=== PATIENT | male | born 1960 | race Caucasian/White ===

== ENCOUNTER 2018-09-22 11:31 | Emergency (ER) | payer MEDICAID ==
[~2018-09-22] VITALS: Ht 177.8 cm; Wt 0.9 kg
[2018-09-22] MEDS ORDERED: vancomycin/NS 1 GM ADD-VANTAGE 250 ML IV ONE (13:30)
[2018-09-22] MEDS ORDERED: piperacillin/tazo 3.375gm/50ml 50 ML IV ONE (13:30)
[2018-09-22] MEDS ORDERED: normal saline 1000ML IV soln IVB ONE (13:30)
[2018-09-22] MEDS ORDERED: LIDOcaine 1% w/epiNEPHrine 1:200,000 30ml vial IM ONE (13:45)
[2018-09-22 14:12] LABS: BASOPHILS % (AUTO) 0.2 % (0-1); EOSINOPHILS # (AUTO) 0.1 X10'3 (0-0.9); EOSINOPHILS % (AUTO) 0.8 % (0-6); HEMOGLOBIN 14.6 g/dl (14.0-17.9); LYMPHOCYTES # (AUTO) 1.2 X10'3 (1.1-4.8); LYMPHOCYTES % (AUTO) 8.4 % (21-51); MEAN CORPUSCULAR HEMOGLOBIN 31.1 PG (27.0-31.0); MEAN CORPUSCULAR HGB CONC 33.9 g/dL (33.0-36.5); MEAN CORPUSCULAR VOLUME 91.8 FL (78-98); MEAN PLATELET VOLUME 8.2 FL (7.4-10.4); MONOCYTES # (AUTO) 0.8 X10'3 (0-0.9); MONOCYTES % (AUTO) 5.7 % (2-12); NEUTROPHILS # (AUTO) 11.9 X10'3 (1.8-7.7); NEUTROPHILS % (AUTO) 84.9 % (42-75); PLATELET COUNT 193 X10'3 (140-440); RED BLOOD COUNT 4.68 X10'6 (4.70-6.10); RED CELL DISTRIBUTION WIDTH 14.1 % (11.5-14.5)
[2018-09-22 14:21] LABS: ALANINE AMINOTRANSFERASE 39 U/L (12-78); ALBUMIN 3.2 G/DL (3.4-5.0); ALBUMIN/GLOBULIN RATIO 0.8 (1.1-1.5); ALKALINE PHOSPHATASE 63 IU/L (46-116); ANION GAP 5 (8-16); ASPARTATE AMINO TRANSFERASE 38 U/L (10-37); BILIRUBIN,TOTAL 0.2 MG/DL (0.1-1.0); BLOOD UREA NITROGEN 15 MG/DL (7-18); BUN/CREATININE RATIO 16.3 (5.4-32.0); CHLORIDE 100 MMOL/L (99-107); CREATININE 0.92 MG/DL (0.60-1.10); GLUCOSE 137 MG/DL (70-104); POTASSIUM 4.2 MMOL/L (3.5-5.1); SODIUM 133 MMOL/L (135-145); TOTAL CARBON DIOXIDE 28.2 MMOL/L (24-32); eGFR 84 ML/MIN
[2018-09-22] MEDS ORDERED: sulfamethoxazole/trimethoprim DS (800/160mg) tablet PO ONE (14:45)
[2018-09-22] MEDS ORDERED: cephalexin 250mg capsule PO ONE (14:45)
--- NOTE | 2018-09-22 14:47 | NUR ---
6 IV ATTEMPTS TOTAL, ASKED MD TO LOOK FOR US IV SITE. WHEN MD IN ROOM, PT DECIDED HE WANTED TO LEAVE WITHOUT HAVING GOTTEN HIS IV ANTIBIOTICS. IV THAT HAD BEEN STARTED WOULD NOT RUN
[2018-09-22] MEDS ORDERED: CEPH500C5 PO (14:53)
[2018-09-22] MEDS ORDERED: BACDS PO (14:53)
[2018-09-22 15:02] VITALS: BP 132/77
== END 2018-09-22 15:09 | disposition home or self-care (01) ==
LOC: ER 11:32
DX: S60.312A Abrasion of left thumb, initial encounter (principal); L03.012 Cellulitis of left finger; F12.90 Cannabis use, unspecified, uncomplicated; F15.90 Other stimulant use, unspecified, uncomplicated; F11.90 Opioid use, unspecified, uncomplicated; Z86.73 Personal history of transient ischemic attack (TIA), and cerebral infarction without residual deficits; Z60.2 Problems related to living alone; Z59.0 Homelessness; Z56.0 Unemployment, unspecified; Z79.899 Other long term (current) drug therapy; W22.8XXA Striking against or struck by other objects, initial encounter; Y93.89 Activity, other specified; Y92.89 Other specified places as the place of occurrence of the external cause; Y99.8 Other external cause status
CPT/HCPCS: 10060; 36415; 73130; 80053; 84145; 85025; 99284; J2543; J3370; J3490

== ENCOUNTER 2018-09-22 17:16 | Inpatient (IN) | payer MEDICAID ==
[~2018-09-22] VITALS: Ht 177.8 cm; Wt 86.3 kg
[~2018-09-22 17:16] MED LIST: BACDS PO; CEPH500C5 PO
[2018-09-22] MEDS ORDERED: piperacillin/tazo 3.375gm/50ml 50 ML IV ONE (18:25)
[2018-09-22] MEDS ORDERED: vancomycin/NS 1 GM ADD-VANTAGE 250 ML IV ONE (18:25)
[2018-09-22] MEDS ORDERED: potassium Cl 20 mEq SR tablet PO PRN ×2 (20:45)
[2018-09-22] MEDS ORDERED: acetaminophen 325mg tablet PO PRN ×2 (20:45)
[2018-09-22] MEDS ORDERED: mag hydrox/Alum hydrox/simeth 30ml oral suspension PO PRN (20:45)
[2018-09-22] MEDS ORDERED: HYDROcodone/acetaminophen 5mg/325mg tablet PO PRN (20:45)
[2018-09-22] MEDS ORDERED: morphine 4 MG/ML inj SYRINge IV PRN ×2 (20:45)
[2018-09-22] MEDS ORDERED: HYDROcodone/acetaminophen 10/325mg tab PO PRN (20:45)
[2018-09-22] MEDS ORDERED: magnesium 2GM in 50ml NS 50 ML IV PRN (20:45)
[2018-09-22] MEDS ORDERED: magnesium 4gm in 100ml NS 100 ML IV PRN (20:45)
[2018-09-22] MEDS ORDERED: ondansetron/PF 4mg/2ml inj IV PRN (20:45)
[2018-09-22] MEDS ORDERED: magnesium Cl slow-release 64mg tablet PO PRN (20:45)
[2018-09-22] MEDS ORDERED: magnesium hydroxide 30ml (MOM) UD suspension PO PRN (20:45)
[2018-09-22] MEDS ORDERED: potassium Cl 40MEQ/NS 500ml 500 ML IV PRN ×2 (20:45)
[2018-09-22] MEDS: normal saline 1000ml 1,000 ML IV SCH ×2 (21:21→23:02)
[2018-09-22 23:00] VITALS: BP 121/76
[2018-09-23] MEDS ORDERED: piperacillin/tazo 3.375gm/50ml 50 ML IV SCH
--- NOTE | 2018-09-23 00:16 | NUR ---
patient's knife locked up with security.
[2018-09-23 06:00] VITALS: BP 152/92
[2018-09-23] MEDS ORDERED: vancomycin inj 1,250 MG in NS 250ml IV soln IV SCH (06:00)
--- NOTE | 2018-09-23 06:35 | NUR ---
Patient in room ORTHO 4018. I have received report from Lashell RANDALL and had the opportunity to ask questions and assume patient care.
--- NOTE | 2018-09-23 06:41 | NUR ---
reported to days. noted pt resting. abx infusing. requested MD order culture of wound
[2018-09-23] MEDS ORDERED: enoxaparin 40mg/0.4ml syringe SQ SCH (08:00)
[2018-09-23] MEDS ORDERED: K and/or MAG REPLACEMENT MC SCH (08:00)
[2018-09-23] MEDS ORDERED: lactobacillus rhamnosus 10,000 MMU CELLS/CAPSULE PO SCH (08:00)
--- NOTE | 2018-09-23 09:08 | NUR ---
PAGER ID: [phone] MESSAGE: [phone] gabriella Jerry is leaving ama- has rx from previous for abx
--- NOTE | 2018-09-23 10:34 | NUR ---
Patient left AMA at 0915 this am. I educated the patient on why he should not leave, and tried to talk him into staying for his health and wellbeing. All risks and benefits discussed with the patient. AMA sign formed, notified. IV taken out. Patient did not eait for MD to come up, but MD was aware of patient leaving AMA.
[2018-09-24] MEDS ORDERED: VANCOMYCIN LEVEL IV ONE (05:30)
== END 2018-09-23 09:00 | disposition left against medical advice (07) | DRG 383 ==
LOC: ER 17:16 → ED HOLD 20:41 → ORTHO 4S 22:40
PROVIDERS: ADMIT Hospitalist; ATTEND Family Medicine
DX: L03.114 Cellulitis of left upper limb (principal); E87.1 Hypo-osmolality and hyponatremia; F12.90 Cannabis use, unspecified, uncomplicated; M65.842 Other synovitis and tenosynovitis, left hand; F32.9 Major depressive disorder, single episode, unspecified; F11.10 Opioid abuse, uncomplicated; Z53.21 Procedure and treatment not carried out due to patient leaving prior to being seen by health care provider; Z60.2 Problems related to living alone; Z59.0 Homelessness; Z86.73 Personal history of transient ischemic attack (TIA), and cerebral infarction without residual deficits; Z72.89 Other problems related to lifestyle; Z79.899 Other long term (current) drug therapy
CPT/HCPCS: 87070; 96365; 96366; 96368; 99285; G0378; J1650; J2543; J3370; J7030

== ENCOUNTER 2019-03-07 14:49 | Inpatient (IN) | payer MEDICAID ==
[~2019-03-07] VITALS: Ht 177.8 cm; Wt 71.8 kg
[~2019-03-07 14:49] MED LIST changes: -BACDS PO
[2019-03-07] MEDS ORDERED: CefTRIAXone 2gm/D5W 50ml 50 ML IV ONE (15:50)
[2019-03-07] MEDS ORDERED: HYDROcodone/acetaminophen 10/325mg tab PO ONE (15:50)
[2019-03-07] MEDS ORDERED: TETanus/Pertussis (Acell)/Diphther VAC/PF (Tdap-Adult) 0.5ml syringe IM ONE (15:50)
[2019-03-07] MEDS ORDERED: LIDOcaine 1% w/EPI 1:200,000 injection 10mL vial IM ONE (15:50)
[2019-03-07] MEDS ORDERED: normal saline 1000ML IV soln IV ONE (15:50)
[2019-03-07] MEDS ORDERED: LIDOcaine 1% W/epiNEPHrine 1:100,000 20ml vial IJ ONE (15:55)
--- NOTE | 2019-03-07 16:30 | NUR ---
WENT TO START IV WITH ULTRASOUND, PT IS A DIFFICULT STICK. BEING RESISTANT TO CARE, TOLD SARITA RUSSO, HES GOING TO GO TALK TO HIM. HE WANTS TO SMOKE
[2019-03-07] MEDS ORDERED: nicotine 21mg patch - 24 hr TD ONE (16:35)
[2019-03-07 17:51] LABS: BASOPHILS % (AUTO) 0.1 % (0-1); EOSINOPHILS # (AUTO) 0.1 X10'3 (0-0.9); EOSINOPHILS % (AUTO) 0.6 % (0-6); HEMATOCRIT 36.1 % (42.0-52.0); HEMOGLOBIN 12.2 g/dl (14.0-17.9); LYMPHOCYTES # (AUTO) 1.4 X10'3 (1.1-4.8); LYMPHOCYTES % (AUTO) 12.7 % (21-51); MEAN CORPUSCULAR HGB CONC 33.8 g/dL (33.0-36.5); MEAN CORPUSCULAR VOLUME 91.7 FL (78-98); MEAN PLATELET VOLUME 7.3 FL (7.4-10.4); MONOCYTES # (AUTO) 0.8 X10'3 (0-0.9); MONOCYTES % (AUTO) 7.3 % (2-12); NEUTROPHILS # (AUTO) 8.8 X10'3 (1.8-7.7); NEUTROPHILS % (AUTO) 79.3 % (42-75); PLATELET COUNT 265 X10'3 (140-440); RED BLOOD COUNT 3.93 X10'6 (4.70-6.10); WHITE BLOOD COUNT 11.1 X10'3 (4.5-11.0)
[2019-03-07 18:09] LABS: ALANINE AMINOTRANSFERASE 37 U/L (12-78); ALBUMIN 2.7 G/DL (3.4-5.0); ALBUMIN/GLOBULIN RATIO 0.7 (1.1-1.5); ALKALINE PHOSPHATASE 72 IU/L (46-116); ANION GAP 6 (8-16); ASPARTATE AMINO TRANSFERASE 37 U/L (10-37); BILIRUBIN,TOTAL 0.3 MG/DL (0.1-1.0); BLOOD UREA NITROGEN 16 MG/DL (7-18); BUN/CREATININE RATIO 21.6 (5.4-32.0); CALCIUM 8.1 MG/DL (8.5-10.1); CHLORIDE 103 MMOL/L (99-107); CREATININE 0.74 MG/DL (0.60-1.10); GLUCOSE 141 MG/DL (70-104); POTASSIUM 3.6 MMOL/L (3.5-5.1); SODIUM 137 MMOL/L (135-145); TOTAL CARBON DIOXIDE 28.1 MMOL/L (24-32); TOTAL PROTEIN 6.6 G/DL (6.4-8.2); eGFR > 90 ML/MIN
[2019-03-07] MEDS ORDERED: iohexol 300mg/ml 100ml inj. ONE (18:44)
[2019-03-07] MEDS ORDERED: NO HOME MEDS (19:51)
--- NOTE | 2019-03-07 20:08 | NUR ---
PT PLACED INTO A GOWN, CLOTHING BAGGED. HE IS EATING SOME CRACKERS. HE IS DROWSY. LAB ATTEMPTED BLOOD CULTURE, ONLY GOT A LITTLE BIT OF BLOOD. PT AWARE HE IS BEING ADMITTED. THE ABSCESS TO HIS RIGHT ARM DRAINED BROWN PURULENT SO I PUT A FRESH GUAZE AND COBAN TO THAT SITE. I PUT COBAN TO HIS IV ON HIS RIGHT FOOT AND TOLD HIM TO BE VERY CAUTIOUS ABOUT THAT IV SITE.
[2019-03-07] MEDS ORDERED: vancomycin/NS 1 GM ADD-VANTAGE 250 ML IV ONE (20:40)
[2019-03-07] MEDS ORDERED: HYDROmorphone inj. 0.5 MG/0.5 ML DISP.SYRIN IV PRN (21:10)
[2019-03-07] MEDS ORDERED: normal saline 1000ml 1,000 ML IV ONE (21:10)
[2019-03-07] MEDS ORDERED: potassium CL 10mEq/100ml bag 100 ML IV PRN ×2 (21:10)
[2019-03-07] MEDS ORDERED: mag hydrox/Alum hydrox/simeth 30ml oral suspension PO PRN (21:10)
[2019-03-07] MEDS ORDERED: acetaminophen 325mg tablet PO PRN ×2 (21:10)
[2019-03-07] MEDS ORDERED: HYDROcodone/acetaminophen 5mg/325mg tablet PO PRN (21:10)
[2019-03-07] MEDS ORDERED: magnesium Cl slow-release 64mg tablet PO PRN (21:10)
[2019-03-07] MEDS ORDERED: magnesium hydroxide 30ml (MOM) UD suspension PO PRN (21:10)
[2019-03-07] MEDS ORDERED: magnesium 2GM in 50ml NS 50 ML IV PRN (21:10)
[2019-03-07] MEDS ORDERED: ondansetron/PF 4mg/2ml inj IV PRN (21:10)
[2019-03-07] MEDS ORDERED: magnesium 4gm in 100ml NS 100 ML IV PRN (21:10)
[2019-03-07] MEDS ORDERED: HYDROmorphone 1 mg/ml syringe IV PRN (21:10)
[2019-03-07] MEDS ORDERED: potassium Cl 20 mEq SR tablet PO PRN ×2 (21:10)
--- NOTE | 2019-03-07 22:06 | NUR ---
TECH AND SECURITY WILL BE GOING THROUGH THE PATIENTS' BELONGINGS.
--- NOTE | 2019-03-07 22:31 | NUR ---
HIS BELONGINGS WERE BAGGED. THERE ARE 4 BAGS THAT WERE PUT IN THE LOCKERS OUTSIDE.
[2019-03-07 23:15] VITALS: BP 131/89
[2019-03-08 06:00] VITALS: BP 138/86
--- NOTE | 2019-03-08 06:03 | NUR ---
Report given to yue Martinez .
--- NOTE | 2019-03-08 06:33 | NUR ---
Patient in room ORTHO 4017. I have received report from Kristy RANDALL and Maryse RANDALL and had the opportunity to ask questions and assume patient care.
[2019-03-08] MEDS: HYDROcodone/acetaminophen 10/325mg tab PO PRN ×2 (07:27→11:47)
[2019-03-08] MEDS ORDERED: CefTRIAXone 2gm/D5W 50ml 50 ML IV SCH (08:00)
[2019-03-08] MEDS ORDERED: K and/or MAG REPLACEMENT MC SCH (08:00)
[2019-03-08] MEDS ORDERED: enoxaparin 40mg/0.4ml syringe SQ SCH (08:00)
[2019-03-08] MEDS ORDERED: lactobacillus rhamnosus 10,000 MMU CELLS/CAPSULE PO SCH (08:00)
[2019-03-08 10:00] VITALS: BP 132/88
[2019-03-08] MEDS ORDERED: pneumococcal 23-VAL P-sac vacc 25 mcg/0.5ml vial IMVAC ONE (10:00)
[2019-03-08 10:39] LABS: BASOPHILS # (AUTO) 0.1 X10'3 (0-0.2); EOSINOPHILS % (AUTO) 0.4 % (0-6); HEMATOCRIT 38.6 % (42.0-52.0); HEMOGLOBIN 13.1 g/dl (14.0-17.9); LYMPHOCYTES # (AUTO) 1.6 X10'3 (1.1-4.8); LYMPHOCYTES % (AUTO) 17.6 % (21-51); MEAN CORPUSCULAR HGB CONC 33.9 g/dL (33.0-36.5); MEAN CORPUSCULAR VOLUME 91.6 FL (78-98); MEAN PLATELET VOLUME 7.7 FL (7.4-10.4); MONOCYTES # (AUTO) 0.5 X10'3 (0-0.9); MONOCYTES % (AUTO) 5.9 % (2-12); NEUTROPHILS # (AUTO) 6.7 X10'3 (1.8-7.7); NEUTROPHILS % (AUTO) 75.1 % (42-75); PLATELET COUNT 299 X10'3 (140-440); RED BLOOD COUNT 4.22 X10'6 (4.70-6.10); RED CELL DISTRIBUTION WIDTH 15.1 % (11.5-14.5); WHITE BLOOD COUNT 8.9 X10'3 (4.5-11.0)
[2019-03-08 10:41] LABS: ALBUMIN 2.5 G/DL (3.4-5.0); ANION GAP 4 (8-16); BLOOD UREA NITROGEN 11 MG/DL (7-18); BUN/CREATININE RATIO 17.7 (5.4-32.0); CALCIUM 7.9 MG/DL (8.5-10.1); CHLORIDE 105 MMOL/L (99-107); CREATININE 0.62 MG/DL (0.60-1.10); GLUCOSE 105 MG/DL (70-104); MAGNESIUM 1.7 MG/DL (1.5-2.4); POTASSIUM 3.8 MMOL/L (3.5-5.1); SODIUM 138 MMOL/L (135-145); TOTAL CARBON DIOXIDE 28.7 MMOL/L (24-32); eGFR > 90 ML/MIN
--- NOTE | 2019-03-08 11:57 | NUR ---
Juan [phone] Re: Claritza. Wants to leave AMA. Pt needs ABX. can we DC patient with ABX?
[2019-03-08] MEDS ORDERED: SULF1TAB49 PO (12:24)
[2019-03-08] MEDS ORDERED: tetanus & diphtheria toxoid (Td) vaccine 0.5ml IMVAC ONE (12:25)
[2019-03-08] MEDS ORDERED: vancomycin/NS 1 GM ADD-VANTAGE 250 ML IV SCH (13:00)
--- NOTE | 2019-03-08 13:03 | NUR ---
Patient safe DC from hospital. all belongings on patient.
--- NOTE | 2019-03-08 14:14 | NUR ---
WOUND INFECTION EDUCATION PROVIDED BY WOUND CARE 1. Patient instructed to call their primary doctor, or go the ED immediately if any of the following symptoms occur: * Increased pain in wound * Increase in drainage from the wound * Redness in the skin surrounding the wound * Warmth in the skin surrounding the wound * Bleeding from the wound * Temperature of 101 or greater 2. If any of these occur while in the hospital tell a nurse immediately. Addendum: 03/08/19 at 1414 by Debbie Paz RN Amended: Links added.
[2019-03-09] MEDS ORDERED: VANCOMYCIN LEVEL IV ONE (12:30)
== END 2019-03-08 13:25 | disposition home or self-care (01) | DRG 351 ==
LOC: ER 14:49 → ORTHO 4S 22:47 → CMPBEDREQ 03-08 05:30
PROVIDERS: ADMIT Hospitalist; ATTEND Family Medicine
PROC: 0H9DXZZ Drainage of Right Lower Arm Skin, External Approach (ICD-10-PCS; principal; 2019-03-07)
PROC: 3E0234Z Introduction of Serum, Toxoid and Vaccine into Muscle, Percutaneous Approach (ICD-10-PCS; 2019-03-07)
PROC: BP2T1ZZ Computerized Tomography (CT Scan) of Right Upper Extremity using Low Osmolar Contrast (ICD-10-PCS; 2019-03-07)
DX: M71.021 Abscess of bursa, right elbow (principal); F11.10 Opioid abuse, uncomplicated; L03.113 Cellulitis of right upper limb; F17.210 Nicotine dependence, cigarettes, uncomplicated; Z60.2 Problems related to living alone; F12.10 Cannabis abuse, uncomplicated; F32.9 Major depressive disorder, single episode, unspecified; Z59.0 Homelessness; Z80.0 Family history of malignant neoplasm of digestive organs; Z80.7 Family history of other malignant neoplasms of lymphoid, hematopoietic and related tissues; Z86.73 Personal history of transient ischemic attack (TIA), and cerebral infarction without residual deficits; Z23 Encounter for immunization; Z71.6 Tobacco abuse counseling; Z71.51 Drug abuse counseling and surveillance of drug abuser
CPT/HCPCS: 10060; 36415; 73201; 80048; 80053; 83605; 83735; 84145; 85025; 87040; 87081; 90471; 96365; 96375; 99285; G0378; J0696; J1170; J1650; J3370; Q9967

== ENCOUNTER 2019-07-20 11:47 | Inpatient (IN) | payer MEDICAID ==
[~2019-07-20] VITALS: Ht 177.8 cm; Wt 74.9 kg
[2019-07-20] MEDS ORDERED: methylPREDNISolone sod succ 125mg/2ml vial IV ONE (12:15)
[2019-07-20] MEDS ORDERED: ipratropium/albuterol 3ml nebule NEB ONE (12:15)
[2019-07-20] MEDS ORDERED: azithromycin/NS 500mg/250ml 250 ML IV ONE (12:15)
[2019-07-20] MEDS ORDERED: normal saline 1000ML IV soln IV ONE (12:15)
[2019-07-20] MEDS ORDERED: CefTRIAXone 2gm/D5W 50ml 50 ML IV ONE (12:15)
[2019-07-20 12:33] LABS: BASOPHILS % (AUTO) 0.1 % (0-1); EOSINOPHILS % (AUTO) 0.1 % (0-6); HEMATOCRIT 38.6 % (42.0-52.0); HEMOGLOBIN 13.1 g/dl (14.0-17.9); LYMPHOCYTES % (AUTO) 4.8 % (21-51); MEAN CORPUSCULAR HEMOGLOBIN 30.2 PG (27.0-31.0); MEAN CORPUSCULAR HGB CONC 33.9 g/dL (33.0-36.5); MEAN CORPUSCULAR VOLUME 89.2 FL (78-98); MEAN PLATELET VOLUME 7.3 FL (7.4-10.4); MONOCYTES # (AUTO) 0.7 X10'3 (0-0.9); MONOCYTES % (AUTO) 3.1 % (2-12); NEUTROPHILS # (AUTO) 19.3 X10'3 (1.8-7.7); NEUTROPHILS % (AUTO) 91.9 % (42-75); PLATELET COUNT 433 X10'3 (140-440); RED BLOOD COUNT 4.33 X10'6 (4.70-6.10); RED CELL DISTRIBUTION WIDTH 15.2 % (11.5-14.5); WHITE BLOOD COUNT 21.1 X10'3 (4.5-11.0)
[2019-07-20 12:58] LABS: ALANINE AMINOTRANSFERASE 67 U/L (12-78); ALBUMIN 2.1 G/DL (3.4-5.0); ALBUMIN/GLOBULIN RATIO 0.5 (1.1-1.5); ALKALINE PHOSPHATASE 128 IU/L (46-116); ANION GAP 10 (8-16); ASPARTATE AMINO TRANSFERASE 63 U/L (10-37); BILIRUBIN,TOTAL 0.8 MG/DL (0.1-1.0); BLOOD UREA NITROGEN 17 MG/DL (7-18); BUN/CREATININE RATIO 24.6 (5.4-32.0); CALCIUM 7.7 MG/DL (8.5-10.1); CHLORIDE 104 MMOL/L (99-107); CREATININE 0.69 MG/DL (0.60-1.10); GLUCOSE 96 MG/DL (70-104); POTASSIUM 3.2 MMOL/L (3.5-5.1); SODIUM 142 MMOL/L (135-145); TOTAL CARBON DIOXIDE 28.4 MMOL/L (24-32); TOTAL PROTEIN 6.7 G/DL (6.4-8.2); eGFR > 90 ML/MIN
[2019-07-20] MEDS ORDERED: NO HOME MEDS (13:13)
[2019-07-20] MEDS ORDERED: potassium CL 10mEq/100ml bag 100 ML IV PRN ×2 (13:25)
[2019-07-20] MEDS ORDERED: mag hydrox/Alum hydrox/simeth 30ml oral suspension PO PRN (13:25)
[2019-07-20] MEDS ORDERED: magnesium Cl slow-release 64mg tablet PO PRN (13:25)
[2019-07-20] MEDS ORDERED: acetaminophen 325mg tablet PO PRN ×2 (13:25)
[2019-07-20] MEDS ORDERED: bisacodyl 10mg suppository rectal RC PRN (13:25)
[2019-07-20] MEDS ORDERED: magnesium 2GM in 50ml NS 50 ML IV PRN (13:25)
[2019-07-20] MEDS ORDERED: magnesium 4gm in 100ml NS 100 ML IV PRN (13:25)
[2019-07-20] MEDS ORDERED: ondansetron/PF 4mg/2ml inj IV PRN (13:25)
[2019-07-20] MEDS ORDERED: magnesium hydroxide 30ml (MOM) UD suspension PO PRN (13:25)
[2019-07-20] MEDS ORDERED: potassium Cl 20 mEq SR tablet PO PRN (13:25)
[2019-07-20] MEDS ORDERED: diphenhydrAMINE 25mg capsule PO PRN (13:25)
[2019-07-20] MEDS ORDERED: acetaminophen 650mg rectal suppository RC PRN (13:25)
[2019-07-20] MEDS: ipratropium/albuterol 3ml nebule NEB SCH ×3 (15:00→23:00)
--- NOTE | 2019-07-20 15:45 | NUR ---
Patient in room ORTHO 4007. I have received report from ELIECER, ELICEO RANDALL and had the opportunity to ask questions and assume patient care.
[2019-07-20 15:50] VITALS: BP 119/74
--- NOTE | 2019-07-20 16:09 | NUR ---
Patient refused SVN tx @ this time. No Shortness of breath noted. PT IN THE SHOWER Addendum: 07/20/19 at 1610 by Halima Jurado RT Amended: Links added.
[2019-07-20] MEDS: methylPREDNISolone sod succ 125mg/2ml vial IV SCH ×2 (16:26→19:48)
[2019-07-20] MEDS: normal saline 1000ml 1,000 ML IV SCH ×2 (16:34→23:22)
[2019-07-20] MEDS: potassium Cl 20 mEq SR tablet PO PRN ×2 (16:42→21:14)
[2019-07-20] MEDS: levoFLOXACIN-Levaquin 750MG/D5 150 ML IV SCH (16:45)
[2019-07-20 16:56] LABS: HEMOGLOBIN A1C 5.5 % (4.5-6.2)
[2019-07-20 18:00] VITALS: BP 117/73
--- NOTE | 2019-07-20 18:37 | NUR ---
Problems reprioritized. Patient report given, questions answered & plan of care reviewed with yue randolph.
[2019-07-20] MEDS: heparin, porcine 5000 units/ml vial SQ SCH (19:48)
[2019-07-20] MEDS: K and/or MAG REPLACEMENT MC SCH (20:00)
[2019-07-20 22:00] VITALS: BP 131/71
[2019-07-20 22:02] LABS: CLARITY,URINE CLEAR (Clear); COLOR,URINE YELLOW (Yellow); GLUCOSE, URINE NEGATIVE (Neg); KETONES,URINE NEGATIVE (Neg); LEUKOCYTE ESTERASE ,URINE NEGATIVE (Neg); NITRITES, URINE NEGATIVE (Neg); OCCULT BLOOD,URINE NEGATIVE (Neg); PROTEIN,URINE TRACE mg/dl (Neg); UROBILINOGEN,URINE >=8.0 E.U/dL (0.2-1.0)
[2019-07-20 22:12] LABS: URINE AMPHETAMINE SCREEN POSITIVE (Neg); URINE BARBITUATE SCREEN NEGATIVE (Neg); URINE BENZODIAZEPINES SCREEN NEGATIVE (Neg); URINE CANNABINOID SCREEN NEGATIVE (Neg); URINE COCAINE SCREEN NEGATIVE (Neg); URINE METHADONE SCREEN NEGATIVE (Neg); URINE OPIATE SCREEN POSITIVE (Neg); URINE PHENCYCLIDINE SCREEN NEGATIVE (Neg)
[2019-07-20 22:13] LABS: UA COLLECTION TYPE CLN CATCH MIDSTREAM
[2019-07-20 22:15] LABS: BACTERIA,URINE NONE SEEN /HPF (Neg); MUCUS STRANDS MODERATE /LPF (Neg); RBC,URINE 0-2 /HPF (0-2); SQUAMOUS EPITHELIAL CELL,UR FEW /LPF (FEW); WBC,URINE 0-4 /HPF (0-4)
[2019-07-21 01:48] LABS: ALANINE AMINOTRANSFERASE 57 U/L (12-78); ALBUMIN 1.6 G/DL (3.4-5.0); ALBUMIN/GLOBULIN RATIO 0.4 (1.1-1.5); ALKALINE PHOSPHATASE 102 IU/L (46-116); ANION GAP 7 (8-16); ASPARTATE AMINO TRANSFERASE 54 U/L (10-37); BILIRUBIN,TOTAL 0.3 MG/DL (0.1-1.0); BLOOD UREA NITROGEN 16 MG/DL (7-18); BUN/CREATININE RATIO 22.9 (5.4-32.0); CALCIUM 7.5 MG/DL (8.5-10.1); CHLORIDE 108 MMOL/L (99-107); CHOL/HDL RATIO 4.1 (0.00-4.99); CHOLESTEROL 70 MG/DL (0-200); GLUCOSE 166 MG/DL (70-104); HDL CHOLESTEROL 17 MG/DL (35-60); LDL CHOLESTEROL 49 MG/DL (50-100); MAGNESIUM 1.8 MG/DL (1.5-2.4); PHOSPHORUS 2.8 MG/DL (2.3-4.5); POTASSIUM 3.7 MMOL/L (3.5-5.1); SODIUM 143 MMOL/L (135-145); TOTAL PROTEIN 5.8 G/DL (6.4-8.2); TRIGLYCERIDES 59 MG/DL (20-135); eGFR > 90 ML/MIN
[2019-07-21] MEDS: methylPREDNISolone sod succ 125mg/2ml vial IV SCH ×2 (02:24→08:32)
[2019-07-21] MEDS: ipratropium/albuterol 3ml nebule NEB SCH ×3 (02:41→11:28)
[2019-07-21 05:33] LABS: BASOPHILS % (AUTO) 0.4 % (0-1); EOSINOPHILS % (AUTO) 0 % (0-6); HEMATOCRIT 36.5 % (42.0-52.0); HEMOGLOBIN 12.5 g/dl (14.0-17.9); LYMPHOCYTES % (AUTO) 7.5 % (21-51); MEAN CORPUSCULAR HEMOGLOBIN 30.7 PG (27.0-31.0); MEAN CORPUSCULAR HGB CONC 34.1 g/dL (33.0-36.5); MEAN CORPUSCULAR VOLUME 90.1 FL (78-98); MEAN PLATELET VOLUME 7.6 FL (7.4-10.4); MONOCYTES # (AUTO) 0.4 X10'3 (0-0.9); MONOCYTES % (AUTO) 2.7 % (2-12); NEUTROPHILS # (AUTO) 11.8 X10'3 (1.8-7.7); NEUTROPHILS % (AUTO) 89.4 % (42-75); PLATELET COUNT 463 X10'3 (140-440); RED BLOOD COUNT 4.05 X10'6 (4.70-6.10); RED CELL DISTRIBUTION WIDTH 15.6 % (11.5-14.5); WHITE BLOOD COUNT 13.2 X10'3 (4.5-11.0)
[2019-07-21 06:00] VITALS: BP 131/81
--- NOTE | 2019-07-21 06:28 | NUR ---
REPORT GIVEN TO PRAKASH RANDALL.
[2019-07-21] MEDS: K and/or MAG REPLACEMENT MC SCH (07:07)
[2019-07-21] MEDS: levoFLOXACIN-Levaquin 750MG/D5 150 ML IV SCH (08:32)
[2019-07-21] MEDS: heparin, porcine 5000 units/ml vial SQ SCH (08:33)
[2019-07-21] MEDS ORDERED: PRED10TA23 PO (09:56)
[2019-07-21] MEDS ORDERED: BUDE10.22 INH (09:56)
[2019-07-21] MEDS ORDERED: LEVO750T46 PO (09:56)
[2019-07-21] MEDS ORDERED: ALBU8.5H8 INH (09:56)
[2019-07-21 10:00] VITALS: BP 124/76
--- NOTE | 2019-07-21 11:08 | NUR ---
Dr. rBianwa in to see patient and discharge him. Patient asked if he could "please stay one more night" after the educated him he was clear and can take medication outside of the hospital, patient "flipped the doctor off" as the he walked out of the room.
--- NOTE | 2019-07-21 11:27 | NUR ---
Director spoke with patient regarding discharge. Offered ride to pharmacy then destination patient accepted. Patient is still uspet regarding discharge and would like to appeal it per RT who came out and told me. I went into room patient is agreeable to Meds sent to [facility] and to go to the [facility], no other mention of appealing. Patient then stated "I am on work release so can the Doctor note that I was in the hospital and for a week due to me being so weak and unable to work." I will page Dr. Mckinney.
--- NOTE | 2019-07-21 12:50 | NUR ---
Patient still reluctant about discharge and stated "there is water coming out my butt" now states he has diarrhea but hasn't saved it for me to look. Medications called into [facility] on [facility] [address], a cab is to pick him up take him there and to the mission. And a note is provided per request for his work release program. Called received order for Imodium. Called [facility] cab for ride.
--- NOTE | 2019-07-21 13:00 | NUR ---
IV taken out patient tolerated well, canula intact.
[2019-07-21] MEDS ORDERED: loperamide 2mg capsule PO ONE (13:20)
--- NOTE | 2019-07-21 13:52 | NUR ---
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 All belongings with patient, and clothing on.
--- NOTE | 2019-07-21 13:56 | NUR ---
Sack lunch and a regular lunch provided, along with additional resources for NA and [facility] patient, patient refused IS and any other clothing items.
== END 2019-07-21 13:55 | disposition home or self-care (01) | DRG 720 ==
LOC: ER 11:48 → ED HOLD 13:22 → EDBEDREQ 13:55 → ORTHO 4S 15:45
PROVIDERS: ADMIT Family Medicine; ATTEND Family Medicine
DX: A41.9 Sepsis, unspecified organism (principal); J18.9 Pneumonia, unspecified organism; F10.10 Alcohol abuse, uncomplicated; F11.10 Opioid abuse, uncomplicated; F15.10 Other stimulant abuse, uncomplicated; R09.02 Hypoxemia; F17.210 Nicotine dependence, cigarettes, uncomplicated; J44.0 Chronic obstructive pulmonary disease with (acute) lower respiratory infection; F12.90 Cannabis use, unspecified, uncomplicated; F32.9 Major depressive disorder, single episode, unspecified; J44.1 Chronic obstructive pulmonary disease with (acute) exacerbation; Z59.0 Homelessness; Z80.0 Family history of malignant neoplasm of digestive organs; Z86.73 Personal history of transient ischemic attack (TIA), and cerebral infarction without residual deficits; Z91.19 Patient's noncompliance with other medical treatment and regimen; Z71.6 Tobacco abuse counseling; Z71.51 Drug abuse counseling and surveillance of drug abuser; Z71.41 Alcohol abuse counseling and surveillance of alcoholic
CPT/HCPCS: 36415; 71045; 80053; 80061; 80305; 81001; 83036; 83605; 83735; 84100; 84145; 84484; 85025; 87040; 87081; 87502; 87503; 93005; 93306; 94640; 94760; 96365; 96375; 99291; G0378; J0456; J0696; J1644; J1956; J2930; J7030

== ENCOUNTER 2020-08-16 20:17 | Inpatient (IN) | payer MEDICAID ==
[~2020-08-16] VITALS: Ht 177.8 cm; Wt 85.0 kg
[~2020-08-16 20:17] MED LIST changes: +ALBU8.5H8 INH; +BUDE10.22 INH; -CEPH500C5 PO
[2020-08-16] MEDS ORDERED: azithromycin/NS 500mg/250ml 250 ML IV ONE (22:45)
[2020-08-16] MEDS ORDERED: CefTRIAXone/D5W-Rocephin 1gm 50 ML IV ONE (22:45)
[2020-08-16 23:09] LABS: BASOPHILS # (AUTO) 0.1 X10'3 (0-0.2); BASOPHILS % (AUTO) 0.4 % (0-1); EOSINOPHILS # (AUTO) 0.2 X10'3 (0-0.9); HEMATOCRIT 39.3 % (42.0-52.0); HEMOGLOBIN 13.1 g/dl (14.0-17.9); LYMPHOCYTES % (AUTO) 4.5 % (21-51); MEAN CORPUSCULAR HGB CONC 33.2 g/dL (33.0-36.5); MEAN CORPUSCULAR VOLUME 84.2 FL (78-98); MEAN PLATELET VOLUME 8.1 FL (7.4-10.4); MONOCYTES # (AUTO) 0.4 X10'3 (0-0.9); MONOCYTES % (AUTO) 1.9 % (2-12); NEUTROPHILS # (AUTO) 21.3 X10'3 (1.8-7.7); NEUTROPHILS % (AUTO) 92.2 % (42-75); PLATELET COUNT 282 X10'3 (140-440); RED BLOOD COUNT 4.67 X10'6 (4.70-6.10); RED CELL DISTRIBUTION WIDTH 15.7 % (11.5-14.5)
--- NOTE | 2020-08-16 23:19 | NUR ---
mireya bustos informed of pt low blood pressure. states he will place orders for fluid resuscitation. pt oriented aox4.
[2020-08-16] MEDS ORDERED: normal saline 1000ML IV soln IVB ONE (23:20)
[2020-08-16] MEDS ORDERED: normal saline 1000ml 1,000 ML IV ONE (23:20)
[2020-08-16 23:23] LABS: ALANINE AMINOTRANSFERASE 26 U/L (12-78); ALBUMIN 2.5 G/DL (3.4-5.0); ALBUMIN/GLOBULIN RATIO 0.4 (1.1-1.5); ALKALINE PHOSPHATASE 77 IU/L (46-116); ANION GAP 10 (8-16); ASPARTATE AMINO TRANSFERASE 38 U/L (10-37); BILIRUBIN,TOTAL 1.5 MG/DL (0.1-1.0); BLOOD UREA NITROGEN 31 MG/DL (7-18); BUN/CREATININE RATIO 22.8 (5.4-32.0); CALCIUM 8.7 MG/DL (8.5-10.1); CHLORIDE 98 MMOL/L (99-107); CREATININE 1.36 MG/DL (0.60-1.10); GLUCOSE 91 MG/DL (70-104); LACTATE DEHYDROGENASE 273 U/L (85-227); POTASSIUM 3.9 MMOL/L (3.5-5.1); SODIUM 133 MMOL/L (135-145); TOTAL CARBON DIOXIDE 25.1 MMOL/L (24-32); TOTAL PROTEIN 8.2 G/DL (6.4-8.2); eGFR 53 ML/MIN
[2020-08-16 23:26] LABS: C-REACTIVE PROTEIN 27.78 MG/DL (0.0-0.5)
[2020-08-16 23:58] LABS: PLATELET ESTIMATE NORMAL; TOTAL CELLS COUNTED 100; TOXIC VACUOLATION 2+
--- NOTE | 2020-08-17 00:13 | NUR ---
PT MOVED FROM ED 16- ED3 FOR CENTRAL LINE PLACEMENT, DUE TO PT ULTRASOUND IV INFLILTRATING AND NO OTHER IV ACESS ABLE TO BEING OBTAINED
[2020-08-17 00:57] LABS: CLARITY,URINE CLEAR (Clear); COLOR,URINE AMBER (Yellow); GLUCOSE, URINE NEGATIVE (Neg); KETONES,URINE TRACE mg/dl (Neg); LEUKOCYTE ESTERASE ,URINE NEGATIVE (Neg); NITRITES, URINE POSITIVE (Neg); OCCULT BLOOD,URINE NEGATIVE (Neg); PH,URINE 5.5 (4.8-8.0); PROTEIN,URINE 100 mg/dl (Neg)
[2020-08-17 00:58] LABS: UA COLLECTION TYPE STRAIGHT CATH
[2020-08-17 01:04] LABS: BACTERIA,URINE 2+ /HPF (Neg); RBC,URINE 0-2 /HPF (0-2)
--- NOTE | 2020-08-17 01:04 | NUR ---
QUAD LUMEN CENTRAL LINE PLACED PT TOLERATED WELL, RIGHT JUGULAR
[2020-08-17 01:05] LABS: MUCUS STRANDS MODERATE /LPF (Neg); SQUAMOUS EPITHELIAL CELL,UR FEW /LPF (FEW); TRANSITIONAL EPI CELLS,URINE FEW /HPF
[2020-08-17 01:06] LABS: URINE AMPHETAMINE SCREEN POSITIVE (Neg); URINE BARBITUATE SCREEN NEGATIVE (Neg); URINE BENZODIAZEPINES SCREEN NEGATIVE (Neg); URINE CANNABINOID SCREEN NEGATIVE (Neg); URINE COCAINE SCREEN NEGATIVE (Neg); URINE METHADONE SCREEN NEGATIVE (Neg); URINE OPIATE SCREEN POSITIVE (Neg); URINE PHENCYCLIDINE SCREEN NEGATIVE (Neg)
[2020-08-17] MEDS ORDERED: IBUP-1986 PO (01:27)
[2020-08-17] MEDS ORDERED: LORazepam 2 mg/ml vial IV PRN (01:30)
[2020-08-17] MEDS ORDERED: thiamine 100mg/ml 2ml inj. IV ONE (01:30)
[2020-08-17] MEDS ORDERED: haloperidol 5mg tablet PO PRN (01:30)
[2020-08-17] MEDS ORDERED: mag hydrox/Alum hydrox/simeth 30ml oral suspension PO PRN (01:30)
[2020-08-17] MEDS ORDERED: magnesium hydroxide 30ml (MOM) UD suspension PO PRN (01:30)
[2020-08-17] MEDS ORDERED: haloperidol lactate 5mg/ml inj IM PRN (01:30)
[2020-08-17] MEDS ORDERED: ondansetron/PF 4mg/2ml inj IV PRN (01:30)
[2020-08-17] MEDS ORDERED: acetaminophen 325mg tablet PO PRN (01:30)
[2020-08-17] MEDS ORDERED: dextrose 50%-water 50ml dispensing syringe IV PRN (01:30)
[2020-08-17] MEDS: [UNRECOGNIZED DRUG - REMARK] IV SCH ×2 (02:24→03:30)
[2020-08-17 03:08] VITALS: BP 99/56
[2020-08-17] MEDS: normal saline 1000ml 1,000 ML IV SCH ×3 (03:19→21:10)
--- NOTE | 2020-08-17 04:42 | NUR ---
PAGER ID: [phone] MESSAGE: [id number] BRITTNEY AWAN , LACTIC ACID IS TRENDING DOWN 3.1 TO 2.4 POST 3L NS BOLUS. NOW IS AT 2.1 WITH IVF AND IV ABS INFUSING . DO YOU WANT ANOTHER LACTIC TO BE TIMED Q2H?
[2020-08-17 07:00] VITALS: BP 103/63
--- NOTE | 2020-08-17 07:12 | NUR ---
Patient in room PCU 3023. I have received report from Lele RANDALL and had the opportunity to ask questions and assume patient care.
[2020-08-17 08:26] LABS: RED CELL DISTRIBUTION WIDTH 15.6 % (11.5-14.5)
[2020-08-17 08:31] LABS: HEMATOCRIT 35.5 % (42.0-52.0); HEMOGLOBIN 11.7 g/dl (14.0-17.9); MEAN CORPUSCULAR HGB CONC 33.1 g/dL (33.0-36.5); MEAN CORPUSCULAR VOLUME 84.5 FL (78-98); MEAN PLATELET VOLUME 8.6 FL (7.4-10.4); PLATELET COUNT 225 X10'3 (140-440)
[2020-08-17 08:40] LABS: ALANINE AMINOTRANSFERASE 21 U/L (12-78); ALBUMIN 1.8 G/DL (3.4-5.0); ALBUMIN/GLOBULIN RATIO 0.4 (1.1-1.5); ALKALINE PHOSPHATASE 65 IU/L (46-116); ANION GAP 8 (8-16); ASPARTATE AMINO TRANSFERASE 26 U/L (10-37); BILIRUBIN,TOTAL 0.8 MG/DL (0.1-1.0); BLOOD UREA NITROGEN 30 MG/DL (7-18); BUN/CREATININE RATIO 34.1 (5.4-32.0); CALCIUM 8.2 MG/DL (8.5-10.1); CHLORIDE 103 MMOL/L (99-107); CREATININE 0.88 MG/DL (0.60-1.10); GLUCOSE 87 MG/DL (70-104); POTASSIUM 3.8 MMOL/L (3.5-5.1); SODIUM 134 MMOL/L (135-145); TOTAL CARBON DIOXIDE 23.1 MMOL/L (24-32); TOTAL PROTEIN 6.5 G/DL (6.4-8.2); eGFR 88 ML/MIN
[2020-08-17] MEDS: heparin, porcine 5000 units/ml vial SQ SCH ×2 (09:16→21:02)
[2020-08-17] MEDS: levoFLOXACIN-Levaquin 750MG/D5 150 ML IV SCH (09:16)
[2020-08-17 09:37] LABS: TOTAL CELLS COUNTED 100
[2020-08-17 09:39] LABS: MONOCYTES % (MANUAL) 1 % (2-12); NEUTROPHILS % (MANUAL) 31 % (42-75)
[2020-08-17 09:41] LABS: TOXIC GRANULATION 2+; TOXIC VACUOLATION 2+
[2020-08-17 09:43] LABS: PLATELET ESTIMATE NORMAL
[2020-08-17 10:05] LABS: NEUTROPHILS % (MANUAL) 35 % (42-75)
[2020-08-17 10:06] LABS: BANDS% (MANUAL) 51 % (0-10); LYMPHOCYTES % (MANUAL) 3 % (21-51); METAMYLEOCYTES% (MANUAL) 8 % (0-0); MONOCYTES % (MANUAL) 2 % (2-12); MYELOCYTES % (MANUAL) 1 % (0-0)
[2020-08-17 10:07] LABS: TOXIC GRANULATION 2+
[2020-08-17] MEDS ORDERED: vancomycin/NS 1 GM ADD-VANTAGE 250 ML IV SCH (10:10)
[2020-08-17 11:00] VITALS: BP 115/75
[2020-08-17 15:00] VITALS: BP 110/50
[2020-08-17] MEDS: NS IV SCH (17:17)
[2020-08-17] MEDS: VANCOMYCIN 1 GM/250 ML IV SCH (17:17)
[2020-08-17 18:00] VITALS: BP 143/91
--- NOTE | 2020-08-17 18:37 | NUR ---
Problems reprioritized. Patient report given, questions answered & plan of care reviewed with Deven RANDALL.
[2020-08-17] MEDS: lactobacillus rhamnosus 10,000 MMU CELLS/CAPSULE PO SCH (21:02)
[2020-08-17 22:00] VITALS: BP 138/83
[2020-08-18 02:00] VITALS: BP 136/76
[2020-08-18] MEDS: VANCOMYCIN 1 GM/250 ML IV SCH (02:00)
[2020-08-18] MEDS: NS IV SCH (02:00)
--- NOTE | 2020-08-18 06:38 | NUR ---
Problems reprioritized. Patient report given, questions answered & plan of care reviewed with TRICE.
[2020-08-18] MEDS: normal saline 1000ml 1,000 ML IV SCH (06:44)
--- NOTE | 2020-08-18 06:55 | NUR ---
Patient in room PCU 3023. I have received report from Deven and had the opportunity to ask questions and assume patient care.
[2020-08-18 07:00] VITALS: BP 137/101
[2020-08-18] MEDS: levoFLOXACIN-Levaquin 750MG/D5 150 ML IV SCH (09:03)
[2020-08-18] MEDS: lactobacillus rhamnosus 10,000 MMU CELLS/CAPSULE PO SCH (09:04)
[2020-08-18] MEDS: heparin, porcine 5000 units/ml vial SQ SCH (09:06)
[2020-08-18] MEDS ORDERED: albuterol 2.5 MG/3 ML nebule NEB PRN (10:30)
[2020-08-18 11:00] VITALS: BP 146/93
[2020-08-18] MEDS ORDERED: VANCOMYCIN LEVEL IV ONE (13:30)
[2020-08-18 15:00] VITALS: BP 159/96
[2020-08-18] MEDS ORDERED: vancomycin/NS 1 GM ADD-VANTAGE 250 ML IV SCH (15:00)
[2020-08-18 18:00] VITALS: BP 159/101
--- NOTE | 2020-08-18 18:23 | NUR ---
Problems reprioritized. Patient report given, questions answered & plan of care reviewed with Adolfo RANDALL.
[2020-08-18] MEDS ORDERED: guaiFENesin 200 MG/10 ML oral syrup UD cup PO SCH (20:00)
[2020-08-19] MEDS ORDERED: LORazepam 2 mg/ml vial IV PRN (01:30)
[2020-08-19] MEDS ORDERED: LORazepam 1 MG tablet PO PRN (01:30)
[2020-08-19] MEDS ORDERED: VANCOMYCIN LEVEL IV ONE (14:30)
[2020-08-21] MEDS ORDERED: LORazepam 2 mg/ml vial IV PRN (01:30)
[2020-08-21] MEDS ORDERED: LORazepam 1 MG tablet PO PRN (01:30)
== END 2020-08-18 19:17 | disposition left against medical advice (07) | DRG 720 ==
LOC: ER 20:18 → ED HOLD 08-17 01:27 → PCU 3S 08-17 02:45
PROVIDERS: ADMIT Family Medicine; ATTEND Internal Medicine
DX: A41.9 Sepsis, unspecified organism (principal); J44.9 Chronic obstructive pulmonary disease, unspecified; J44.0 Chronic obstructive pulmonary disease with (acute) lower respiratory infection; Z86.73 Personal history of transient ischemic attack (TIA), and cerebral infarction without residual deficits; F32.9 Major depressive disorder, single episode, unspecified; J18.1 Lobar pneumonia, unspecified organism; F15.10 Other stimulant abuse, uncomplicated; E87.2 Acidosis; E87.1 Hypo-osmolality and hyponatremia; Z80.8 Family history of malignant neoplasm of other organs or systems; F12.90 Cannabis use, unspecified, uncomplicated; Z59.0 Homelessness; N39.0 Urinary tract infection, site not specified; N17.9 Acute kidney failure, unspecified; F17.210 Nicotine dependence, cigarettes, uncomplicated; Z20.822 Contact with and (suspected) exposure to COVID-19
CPT/HCPCS: 36415; 36556; 71045; 80053; 80202; 80305; 81001; 83605; 83615; 83880; 84145; 85007; 85025; 86140; 87040; 87070; 87081; 87088; 87502; 87503; 87635; 93306; 93308; 94640; 94760; 99291; C9803; G0378; J0456; J0696; J1644; J1956; J2060; J3370; J3411; J7030

== ENCOUNTER 2021-01-29 23:05 | Emergency (ER) | payer MEDICAID ==
[~2021-01-29] VITALS: Ht 180.3 cm; Wt 72.0 kg
[~2021-01-29 23:05] MED LIST changes: -ALBU8.5H8 INH; -BUDE10.22 INH; +IBUP-1986 PO
[2021-01-30 00:31] LABS: BASOPHILS % (AUTO) 0.3 % (0-1); EOSINOPHILS % (AUTO) 0.3 % (0-6); HEMATOCRIT 32.4 % (42.0-52.0); HEMOGLOBIN 11.1 g/dl (14.0-17.9); LYMPHOCYTES # (AUTO) 0.2 X10'3 (1.1-4.8); LYMPHOCYTES % (AUTO) 1.7 % (21-51); MEAN CORPUSCULAR HEMOGLOBIN 30.7 PG (27.0-31.0); MEAN CORPUSCULAR HGB CONC 34.3 g/dL (33.0-36.5); MEAN CORPUSCULAR VOLUME 89.7 FL (78-98); MEAN PLATELET VOLUME 8.2 FL (7.4-10.4); MONOCYTES % (AUTO) 0.3 % (2-12); NEUTROPHILS # (AUTO) 8.9 X10'3 (1.8-7.7); NEUTROPHILS % (AUTO) 97.4 % (42-75); PLATELET COUNT 182 X10'3 (140-440); RED BLOOD COUNT 3.61 X10'6 (4.70-6.10); RED CELL DISTRIBUTION WIDTH 14.3 % (11.5-14.5); WHITE BLOOD COUNT 9.2 X10'3 (4.5-11.0)
[2021-01-30] MEDS ORDERED: acetaminophen 325mg tablet PO ONE (00:40)
[2021-01-30] MEDS ORDERED: normal saline 1000ML IV soln IV ONE (01:20)
[2021-01-30] MEDS ORDERED: vancomycin/NS 1 GM ADD-VANTAGE 250 ML IV ONE (01:20)
[2021-01-30] MEDS ORDERED: CefTRIAXone 2gm/D5W 50ml BAG 50 ML IV ONE (01:20)
[2021-01-30 01:23] LABS: ALANINE AMINOTRANSFERASE 32 U/L (12-78); ALBUMIN 2.5 G/DL (3.4-5.0); ALBUMIN/GLOBULIN RATIO 0.6 (1.1-1.5); ALKALINE PHOSPHATASE 163 IU/L (46-116); ANION GAP 12 (8-16); ASPARTATE AMINO TRANSFERASE 71 U/L (10-37); BILIRUBIN,TOTAL 0.6 MG/DL (0.1-1.0); BLOOD UREA NITROGEN 22 MG/DL (7-18); BUN/CREATININE RATIO 18.3 (5.4-32.0); C-REACTIVE PROTEIN 3.27 MG/DL (0.0-0.5); CALCIUM 7.9 MG/DL (8.5-10.1); CHLORIDE 102 MMOL/L (99-107); GLUCOSE 103 MG/DL (70-104); POTASSIUM 3.2 MMOL/L (3.5-5.1); SODIUM 140 MMOL/L (135-145); TOTAL PROTEIN 6.8 G/DL (6.4-8.2); eGFR 62 ML/MIN
[2021-01-30 04:00] LABS: CLARITY,URINE CLEAR (Clear); GLUCOSE, URINE NEGATIVE (Neg); KETONES,URINE TRACE mg/dl (Neg); LEUKOCYTE ESTERASE ,URINE NEGATIVE (Neg); NITRITES, URINE NEGATIVE (Neg); OCCULT BLOOD,URINE NEGATIVE (Neg); PH,URINE 6.5 (4.8-8.0); PROTEIN,URINE TRACE mg/dl (Neg)
[2021-01-30 04:42] LABS: COLOR,URINE DARK YELLOW (Yellow); UA COLLECTION TYPE NON-SPECIFIED
[2021-01-30 04:43] LABS: BACTERIA,URINE NONE SEEN /HPF (Neg); RBC,URINE NONE SEEN /HPF (0-2); SQUAMOUS EPITHELIAL CELL,UR NONE SEEN /LPF (FEW); WBC,URINE 0-4 /HPF (0-4)
[2021-01-30] MEDS ORDERED: CEPH250T PO (05:27)
[2021-01-30] MEDS ORDERED: potassium Cl 20 mEq SR tablet PO STA (05:29)
[2021-01-30 05:56] VITALS: BP 108/58
== END 2021-01-30 06:04 | disposition home or self-care (01) ==
LOC: ER 23:07
DX: M25.562 Pain in left knee (principal); Z20.822 Contact with and (suspected) exposure to COVID-19; G89.29 Other chronic pain; M25.552 Pain in left hip; R50.9 Fever, unspecified; E87.6 Hypokalemia; I50.9 Heart failure, unspecified; J44.9 Chronic obstructive pulmonary disease, unspecified; F32.9 Major depressive disorder, single episode, unspecified; F12.90 Cannabis use, unspecified, uncomplicated; F15.90 Other stimulant use, unspecified, uncomplicated; F11.90 Opioid use, unspecified, uncomplicated; Z86.73 Personal history of transient ischemic attack (TIA), and cerebral infarction without residual deficits; Z60.2 Problems related to living alone; Z56.0 Unemployment, unspecified; Z72.89 Other problems related to lifestyle; Z59.0 Homelessness; Z79.2 Long term (current) use of antibiotics; Z79.899 Other long term (current) drug therapy
CPT/HCPCS: 36415; 71045; 80053; 81001; 83605; 85025; 85651; 86140; 87040; 87635; 96365; 96366; 96368; 99284; C9803; J0696; J3370; J7030